=== PATIENT | female | born 1955 | race Asian ===

== ENCOUNTER 2018-04-05 21:55 | Emergency (ER) | payer MEDICARE, MEDICAID ==
--- NOTE | 2018-04-06 00:54 | ED Physician Documentation ---
History of Present Illness - Stated complaint Stated Complaint: R FOOT PX/RED O.S. - Chief complaint Chief Complaint: Trauma Ext - History obtained from History obtained from: Patient - History of Present Illness Timing: Enter time (20:00), Today Pain level now: 3 Worsened by: palpation, movement - Additonal information Additional information: c/o right foot and right ankle pain since 8 PM when she accidentally struck doorframe. she also wants me to evaluate her left eye, as it has been red since earlier today without injury or discomfort. Review of Systems Eyes: reports: Reviewed and negative, Other (left eye redness) PD PAST MEDICAL HISTORY - Past Medical History Past Medical History: Yes Neuro: Parkinson's Other Past Medical History: Dystonia - Present Medications Home Medications: Ambulatory Orders Medication Instructions Recorded Confirmed Gabapentin 1 cap PO DAILY 04/05/18 04/05/18 Acetaminophen [Tylenol] 650 mg PO Q4HR PRN 04/06/18 04/06/18 - Allergies Allergies/Adverse Reactions: Allergies Allergy/AdvReac Type Severity Reaction Status Date / Time erythromycin base Allergy Unknown Verified 04/05/18 23:51 fluticasone [From Flonase] Allergy Unknown Verified 04/05/18 23:52 morphine Allergy Unknown Verified 04/05/18 23:52 Penicillins Allergy Unknown Verified 04/05/18 23:51 Sulfa (Sulfonamide Allergy Unknown Verified 04/05/18 23:51 Antibiotics) - Social History Does the pt smoke?: No Smoking Status: Never smoker Does the pt drink ETOH?: No Does the pt have substance abuse?: No - Immunizations Immunizations are current?: Yes - POLST Patient has POLST: No PD ED PE NORMAL - Vitals Vital signs reviewed: Yes - General General: Alert and oriented X 3, No acute distress, Well developed/nourished, Other (sitting in electric wheelchair with chihuahua in her lap. ) PD ED PE EXPANDED - Eyes Eyes: Right eye, Subconj hemorrhage (mild, ledt eye, medial aspect) - Extremities Extremities: Tenderness, Limited ROM, Swelling, Right ankle, Right foot Results - Vitals Vitals: Vital Signs - 24 hr 04/06/18 03:36 Heart Rate 90 Respiratory 16 Rate Blood Pressure 155/72 H O2 Saturation 100 Oxygen O2 Source Room air - Rads (name of study) right foot xrays Radiology: Prelim report reviewed, See rad report right ankle xrays Radiology: Prelim report reviewed, See rad report PD MEDICAL DECISION MAKING - ED course Complexity details: reviewed results, re-evaluated patient, considered differential, d/w patient - Sepsis Event Vital Signs: Vital Signs - 24 hr 04/06/18 03:36 Heart Rate 90 Respiratory 16 Rate Blood Pressure 155/72 H O2 Saturation 100 Oxygen O2 Source Room air Departure - Departure Disposition: 01 Home, Self Care Clinical Impression: Contusion of right ankle, Right foot sprain Condition: Good Instructions: ED Contusion Foot Follow-Up: ROBIN SEGOVIA PA-C [Primary Care Provider] - Discharge Date/Time: 04/06/18 04:09
--- NOTE | 2018-04-06 03:02 | XRAY Report ---
Procedure Date: 04/06/2018 Accession Number: [id number] / [id number] Procedure: XR - Foot 3 View RT CPT Code: FULL RESULT: EXAM: RIGHT FOOT RADIOGRAPHY EXAM DATE: 04/06/2018 02:28 AM. CLINICAL HISTORY: Injury, pain, tenderness. COMPARISON: None. TECHNIQUE: 3 views. FINDINGS: Reduced sensitivity and specificity due to difficulty with patient positioning. Furthermore, osteopenia compromises exam sensitivity and specificity. Bones: No definite acute displaced fracture. No definite suspicious bony lesion. Joints: No dislocation is demonstrated. Soft Tissues: No significant soft tissue swelling. IMPRESSION: 1. No definite acute bony abnormality. Please see discussion above. RADIA
--- NOTE | 2018-04-06 03:03 | XRAY Report ---
Procedure Date: 04/06/2018 Accession Number: [id number] / [id number] Procedure: XR - Ankle 3 View RT CPT Code: FULL RESULT: EXAM: RIGHT ANKLE RADIOGRAPHY EXAM DATE: 04/06/2018 02:24 AM. CLINICAL HISTORY: Injury, pain, tenderness. COMPARISON: None. TECHNIQUE: 3 views. FINDINGS: Bones: No definite acute displaced fracture or suspicious lesion evident at this time. However, bones are at least moderately osteopenic. This reduces exam sensitivity and specificity for detection of subtle bony lesions and/or fractures. Joints: As visualized, ankle mortise appears intact on these nonstressed images. Soft Tissues: Mild to moderate lateral soft tissue swelling. IMPRESSION: There is lateral soft tissue swelling. However, no definite acute displaced fracture demonstrated at this time. Osteopenia reduces sensitivity and specificity. RADIA
[2018-04-06 03:37] VITALS: BP 155/72
== END 2018-04-06 04:09 | disposition home or self-care (01) ==
LOC: ED 21:55
DX: S90.01XA Contusion of right ankle, initial encounter (principal); S90.31XA Contusion of right foot, initial encounter; W22.09XA Striking against other stationary object, initial encounter; G20 Parkinson's disease
CPT/HCPCS: 99282; 99284

== ENCOUNTER 2018-08-27 20:22 | Outpatient (CLI) | payer MEDICARE, MEDICAID | END 2018-08-27 20:23 | disposition critical access hospital (66) | LOC: EMS 20:22 | PROVIDERS: ATTEND Surgery | DX: R11.2 Nausea with vomiting, unspecified (principal); R19.7 Diarrhea, unspecified; G20 Parkinson's disease; G24.9 Dystonia, unspecified | CPT/HCPCS: A0425; A0429 ==

== ENCOUNTER 2018-08-27 20:26 | Emergency (ER) | payer MEDICARE, MEDICAID ==
[2018-08-27] MEDS ORDERED: LOPERAMIDE 2 MG CAPSULE PO STA (20:32)
[2018-08-27] MEDS ORDERED: ONDANSETRON 4 MG/2 ML VIAL IVP STA (20:32)
[2018-08-27] MEDS ORDERED: SODIUM CHLORIDE 0.9% 1,000 ML IV ONE (20:32)
--- NOTE | 2018-08-27 20:39 | ED Physician Documentation ---
PD HPI NVD - Stated complaint Stated Complaint: DIARRHEA - History obtained from History obtained from: Patient - History of Present Illness Timing - onset: Today (She felt fine earlier in the day but abruptly developed vomiting and diarrhea just a few hours ago without blood from either end. Both of been profuse. She lives in a snf but there is been no illness there that she knows of. She has chronic muscle spasms from dystonia and parkinsonism that are much worse with this. No other pain, specifically no abdominal pain.) Review of Systems Constitutional: reports: Myalgias. denies: Fever, Chills Nose: denies: Rhinorrhea / runny nose, Congestion Cardiac: denies: Chest pain / pressure, Palpitations Respiratory: denies: Dyspnea, Cough GI: reports: Nausea, Vomiting, Diarrhea. denies: Abdominal Pain, Abdominal Swelling, Constipation, Hematemesis, Bloody / black stool PD PAST MEDICAL HISTORY - Past Medical History Neuro: Parkinson's - Present Medications Home Medications: Ambulatory Orders Medication Instructions Recorded Confirmed RX: Gabapentin 1 cap PO DAILY 04/05/18 04/05/18 Acetaminophen [Tylenol] 650 mg PO Q4HR PRN 04/06/18 04/06/18 Loperamide [Imodium] 2 mg PO QID PRN #10 capsule 08/27/18 Ondansetron Odt [Zofran] 4 mg TL Q6H PRN #10 tablet 08/27/18 - Allergies Allergies/Adverse Reactions: Allergies Allergy/AdvReac Type Severity Reaction Status Date / Time erythromycin base Allergy Unknown Verified 04/05/18 23:51 fluticasone [From Flonase] Allergy Unknown Verified 04/05/18 23:52 morphine Allergy Unknown Verified 04/05/18 23:52 Penicillins Allergy Unknown Verified 04/05/18 23:51 Sulfa (Sulfonamide Allergy Unknown Verified 04/05/18 23:51 Antibiotics) - Social History Does the pt smoke?: No Smoking Status: Never smoker Does the pt drink ETOH?: No Does the pt have substance abuse?: No - Immunizations Immunizations are current?: Yes - POLST Patient has POLST: No PD ED PE NORMAL - Vitals Vital signs reviewed: Yes - General General: Alert and oriented X 3, No acute distress - Cardiac Cardiac: RRR, No murmur - Respiratory Respiratory: No respiratory distress, Clear bilaterally - Abdomen Abdomen: Normal bowel sounds, Soft, Non tender - Derm Derm: Normal color, Warm and dry - Extremities Extremities: Other (Most of her muscles are held extended.) - Neuro Neuro: Alert and oriented X 3, Normal speech Results - Vitals Vitals: Vital Signs - 24 hr 08/27/18 08/27/18 20:29 23:13 Temperature 36.5 C Heart Rate 108 H 89 Respiratory 18 Rate Blood Pressure 135/79 H 119/64 O2 Saturation 98 91 L Oxygen O2 Source Room air - Labs Labs: Laboratory Tests 08/27/18 08/27/18 20:14 20:14 WBC 20.0 H RBC 5.14 Hgb 16.2 H Hct 48.3 H MCV 94.0 MCH 31.4 H MCHC 33.4 RDW 13.2 Plt Count 194 MPV 10.2 Neut # (Auto) 17.9 H Lymph # (Auto) 0.6 L [place] # (Auto) 1.2 H Eos # (Auto) 0.2 Baso # (Auto) 0.1 Absolute Nucleated RBC 0.01 Nucleated RBC % 0.0 Sodium 137 Potassium 3.9 Chloride 104 Carbon Dioxide 23 Anion Gap 10.0 BUN 20 Creatinine 0.8 Estimated GFR (MDRD) 73 L Glucose 154 H Calcium 9.3 Magnesium 1.8 Total Bilirubin 0.7 AST 28 ALT 18 Alkaline Phosphatase 62 Total Protein 7.2 Albumin 4.3 Globulin 2.9 Albumin/Globulin Ratio 1.5 Lipase 27 PD MEDICAL DECISION MAKING - ED course ED course: She has sx of viral gastroenteritis,. Benign abd exam. CT done d/t leukocytosis but NAD. Feeling much better after IVF, zofran and imodium anmd passed PO challenge. Given close return precaustions, i.e should be better in 12 hours. Departure - Departure Disposition: 01 Home, Self Care Clinical Impression: Gastroenteritis and colitis, viral, Leukocytosis Condition: Good Record reviewed to determine appropriate education?: Yes Instructions: ED Gastroenteritis Viral Prescriptions: Loperamide [Imodium] 2 mg PO QID PRN #10 capsule PRN Reason: Diarrhea Ondansetron Odt [Zofran] 4 mg TL Q6H PRN #10 tablet PRN Reason: Nausea / Vomiting Comments: Return in 12-18 hours if not better, anytime if worsening or if new symptoms develop. Recheck with your doctor in 1 week. Your blood pressure was elevated today on check into the emergency department. This does not mean that you have hypertension, it is a common phenomenon to come to the emergency department and have elevated blood pressure. I recommend that you see your primary care physician within the week to have it rechecked when you are feeling better. Discharge Date/Time: 08/27/18 23:14
[2018-08-27 20:57] LABS: BASOPHILS # (AUTO) 0.1 10^3/uL (0.0-0.1); BASOPHILS % (AUTO) 0.3 %; EOSINOPHILS # (AUTO) 0.2 10^3/uL (0.0-0.7); EOSINOPHILS % (AUTO) 1.2 %; HGB - HEMOGLOBIN 16.2 g/dL (12.0-16.0); LYMPHOCYTES # (AUTO) 0.6 10^3/uL (1.5-3.5); LYMPHOCYTES % (AUTO) 3.2 %; MEAN CORPUSCULAR HEMOGLOBIN 31.4 pg (27.0-31.0); MEAN CORPUSCULAR HGB CONC 33.4 g/dL (32.0-36.0); MEAN PLATELET VOLUME 10.2 fL (7.9-10.8); MONOCYTES # (AUTO) 1.2 10^3/uL (0.0-1.0); MONOCYTES % (AUTO) 6.1 %; NEUTROPHILS # (AUTO) 17.9 10^3/uL (1.5-6.6); NEUTROPHILS % (AUTO) 89.2 %; PLT - PLATELET COUNT 194 10^3/uL (130-450); RED BLOOD COUNT 5.14 10^6/uL (4.20-5.40); RED CELL DISTRIBUTION WIDTH 13.2 % (12.0-15.0)
[2018-08-27] MEDS ORDERED: CARBIDOPA/LEVODOPA 10 MG/100 MG TABLET PO STA (21:16)
[2018-08-27] MEDS ORDERED: GABAPENTIN 100 MG CAPSULE PO STA (21:16)
[2018-08-27] MEDS ORDERED: ACETAMINOPHEN/CODEINE 300 MG/30 MG TABLET PO STA (21:16)
[2018-08-27] MEDS ORDERED: IOVERSOL 320 100 ML VIAL IVP ONE ×2 (21:19→22:00)
[2018-08-27] MEDS ORDERED: GABAPENTIN 400 MG CAPSULE ONE (21:27)
[2018-08-27 21:30] LABS: ALBUMIN 4.3 g/dL (3.2-5.5); ALBUMIN/GLOBULIN RATIO 1.5 (1.0-2.2); BILIRUBIN,TOTAL 0.7 mg/dL (0.2-1.0); CALCIUM 9.3 mg/dL (8.5-10.3); CREATININE 0.8 mg/dL (0.4-1.0); MAGNESIUM 1.8 mg/dL (1.7-2.8); TOTAL PROTEIN 7.2 g/dL (6.7-8.2)
--- NOTE | 2018-08-27 22:34 | CT Report ---
Reason: IV only, N/V/D, 20K WBC Procedure Date: 08/27/2018 Accession Number: [id number] / [id number] Procedure: CT - Abdomen/Pelvis W/ CPT Code: FULL RESULT: EXAM: CT ABDOMEN AND PELVIS EXAM DATE: 08/27/2018 09:38 PM. CLINICAL HISTORY: IV only, N/V/D, 20K WBC. COMPARISONS: None. TECHNIQUE: Routine helical CT imaging was performed through the abdomen and pelvis. IV contrast: 90 ML OPTIRAY 320. Enteric contrast: No. Reconstructions: Coronal and sagittal. In accordance with CT protocol optimization, one or more of the following dose reduction techniques were utilized for this exam: automated exposure control, adjustment of mA and/or KV based on patient size, or use of iterative reconstructive technique. FINDINGS: Lung Bases: Lung bases are clear. No pleural or pericardial effusions. No cardiac enlargement. Small hiatal hernia noted. Liver: Normal. No masses. Gallbladder/Bile Ducts: Gallbladder is absent. No common bile duct dilation noted. Spleen: Normal. Pancreas: Normal. Adrenal Glands: Normal. Kidneys: Incidental peripelvic cyst. No mass. Small left-sided renal cyst. Coarse small inferior left renal stone. Peritoneal Cavity/Bowel: Normal. No free fluid, free air or adenopathy. No masses or acute inflammatory process. There are multiple diverticula seen which most severely affect the sigmoid colon. No wall thickening or adjacent inflammation seen. No obstruction noted. The appendix is well visualized and normal. Pelvic Organs: Uterus is absent. Normal bladder. No ascites. No collection, pelvic mass or adenopathy. Vasculature: No aneurysms or other significant abnormality. Bones: No osteoblastic or osteolytic lesions are noted. Multilevel degenerative disk disease and facet arthropathy is noted. Status post L4-S1 posterior fusion and laminectomy. Other: None. IMPRESSION: 1. Diverticulosis. No inflammation or obstruction. 2. No acute abnormality in abdomen or pelvis. 3. Status post hysterectomy. RADIA
[2018-08-27] MEDS ORDERED: ONDANSETRON ODT 4 MG Prepack 2 TL STA (22:38)
[2018-08-27 23:14] VITALS: BP 119/64
== END 2018-08-27 23:14 | disposition home or self-care (01) ==
LOC: EDUNIT# → ED 20:26
DX: A08.4 Viral intestinal infection, unspecified (principal); D72.829 Elevated white blood cell count, unspecified; G20 Parkinson's disease; R03.0 Elevated blood-pressure reading, without diagnosis of hypertension
CPT/HCPCS: 36415; 74177; 80053; 83690; 83735; 85025; 96361; 96374; 99283; A9270; Q9967

== ENCOUNTER 2018-08-27 23:14 | Outpatient (CLI) | payer MEDICARE, MEDICAID | END 2018-08-27 23:15 | disposition short-term general hospital (02) | LOC: EMS 23:14 | PROVIDERS: ATTEND Surgery | DX: G20 Parkinson's disease (principal); G24.9 Dystonia, unspecified ==

== ENCOUNTER 2018-12-12 13:01 | Emergency (ER) | payer MEDICARE, MEDICAID ==
--- NOTE | 2018-12-12 14:26 | ED Physician Documentation ---
History of Present Illness - Stated complaint Stated Complaint: LT SIDE PX - Chief complaint Chief Complaint: General - History obtained from History obtained from: Patient - History of Present Illness Timing: Other (2 days of left flank pain. Better with laying still. Fell two weeks ago, but pain not bad until 2 days ago. No acute bowel or bladder complaints, but always with urgency d/t dystonia.) PD PAST MEDICAL HISTORY - Past Medical History Past Medical History: Yes Neuro: Parkinson's - Past Surgical History Past Surgical History: No - Present Medications Home Medications: Ambulatory Orders Medication Instructions Recorded Confirmed Gabapentin 2 cap PO BID 04/05/18 12/12/18 Acetaminophen [Tylenol] 650 mg PO BID 04/06/18 12/12/18 Ondansetron Odt [Zofran] 4 mg TL Q6H PRN #10 tablet 08/27/18 Albuterol Sulfate [Proair 2 puffs INH Q6HR PRN 12/12/18 12/12/18 Respiclick] Carbidopa/Levodopa [Carbidopa-Levo 1 tab ORAL BID 12/12/18 12/12/18 ER 50-200 Tab] Carbidopa/Levodopa 3 tab ORAL QID 12/12/18 12/12/18 [Carbidopa-Levodopa 10-100 Tab] Ciprofloxacin HCl [Cipro] 500 mg PO BID #14 tablet 12/12/18 Docusate Sodium 1 cap ORAL BID 12/12/18 12/12/18 Ketorolac [Toradol] 10 mg PO Q6H PRN #10 tablet 12/12/18 Levocetirizine Dihydrochloride 1 tab ORAL QPM 12/12/18 12/12/18 Montelukast Sodium 1 tab ORAL QPM 12/12/18 12/12/18 Venlafaxine ER [Effexor ER] 225 mg ORAL DAILY 12/12/18 12/12/18 - Allergies Allergies/Adverse Reactions: Allergies Allergy/AdvReac Type Severity Reaction Status Date / Time erythromycin base Allergy Unknown Verified 12/12/18 13:09 fluticasone [From Flonase] Allergy Unknown Verified 12/12/18 13:09 morphine Allergy Unknown Verified 12/12/18 13:09 Penicillins Allergy Unknown Verified 12/12/18 13:09 Sulfa (Sulfonamide Allergy Unknown Verified 12/12/18 13:09 Antibiotics) - Social History Does the pt smoke?: No Smoking Status: Never smoker Does the pt drink ETOH?: No Does the pt have substance abuse?: No - Immunizations Immunizations are current?: Yes - POLST Patient has POLST: No PD ED PE NORMAL - Vitals Vital signs reviewed: Yes - General General: Alert and oriented X 3, No acute distress - Cardiac Cardiac: RRR, No murmur - Respiratory Respiratory: No respiratory distress, Clear bilaterally - Abdomen Abdomen: Non tender - Back Back: No spinal TTP, Other (TTP Left flank and winces with motion/twisting, also TTP L low ribs posterior) - Neuro Neuro: Alert and oriented X 3, Normal speech Results - Vitals Vitals: Vital Signs - 24 hr 12/12/18 13:04 Temperature 36.7 C Heart Rate 96 Respiratory 16 Rate Blood Pressure 132/78 H O2 Saturation 96 Oxygen O2 Source Room air - Labs Labs: Laboratory Tests 12/12/18 15:07 Urine Color YELLOW Urine Clarity HAZY Urine pH 6.0 Ur Specific [place] 1.015 Urine Protein NEGATIVE Urine Glucose (UA) NEGATIVE Urine Ketones TRACE Urine Occult Blood LARGE H Urine Nitrite POSITIVE H Urine Bilirubin NEGATIVE Urine Urobilinogen 0.2 (NORMAL) Ur Leukocyte Esterase SMALL H Urine RBC 11-25 H Urine WBC >25 H Urine WBC Clumps PRESENT Ur Squamous Epith Cells NONE SEEN Urine Bacteria Many H Ur Microscopic Review INDICATED Urine Culture Comments INDICATED - Rads (name of study) L ribs and chest Radiology: EMP read contemporaneously (neg, no frx seen) PD MEDICAL DECISION MAKING - ED course ED course: 63-year-old woman with pyelonephritis, complained of left flank pain after a fall but the pain was significantly delayed after the injury so may or may not have been related. X-rays of the ribs are negative. Prescribe Cipro for the pyelonephritis. She does not appear ill and her vital signs are normal. Departure - Departure Disposition: 01 Home, Self Care Clinical Impression: Pyelonephritis Contusion of rib on left side Qualifiers: Encounter type: initial encounter Qualified Code(s): S20.212A - Contusion of left front wall of thorax, initial encounter Condition: Good Record reviewed to determine appropriate education?: Yes Instructions: Pyelonephritis Dc Prescriptions: Ciprofloxacin HCl [Cipro] 500 mg PO BID #14 tablet Ketorolac [Toradol] 10 mg PO Q6H PRN #10 tablet PRN Reason: Pain Comments: We will culture your urine, the results should be done in 48-72 hours. If an antibiotic change is necessary we will call you. Return if worse in the meantime, especially if you develop increasing flank pain, fevers, or cannot k eep down the medication. Recheck with your doctor within the week.
[2018-12-12] MEDS ORDERED: KETOROLAC 60 MG/2 ML VIAL IM STA (14:39)
--- NOTE | 2018-12-12 15:22 | XRAY Report ---
Reason: post L rib inj, low Procedure Date: 12/12/2018 Accession Number: [id number] / [id number] Procedure: XR - Ribs w/PA Chest LT CPT Code: FULL RESULT: EXAM: LEFT RIB RADIOGRAPHY EXAM DATE: 12/12/2018 03:09 PM. CLINICAL HISTORY: Posterior lower left rib injury 1 week ago in a fall. Pain. COMPARISON: None. TECHNIQUE: 1 view of the chest and 3 views of the ribs. FINDINGS: Bones: Detail limited by soft tissue attenuation. No fracture or bone lesion identified. Lungs: No focal opacities. No pneumothorax. No pleural effusions. Mediastinum: Heart and mediastinal contours are unremarkable. Other: None. IMPRESSION: No rib fracture identified. RADIA
[2018-12-12 15:24] LABS: BILIRUBIN,URINE NEGATIVE (NEGATIVE); GLUCOSE, URINE (UA) NEGATIVE (NEGATIVE); KETONES,URINE (UA) TRACE mg/dL (NEGATIVE); LEUKOCYTE ESTERASE, URINE SMALL (NEGATIVE); NITRITE,URINE POSITIVE (NEGATIVE); OCCULT BLOOD,URINE LARGE (NEGATIVE); PROTEIN,URINE NEGATIVE (NEGATIVE); UROBILINOGEN,URINE 0.2 (NORMAL) E.U./dL (NORMAL)
[2018-12-12 15:54] LABS: CLARITY,URINE HAZY (CLEAR)
[2018-12-12 15:55] LABS: BACTERIA,URINE Many /HPF (None Seen); SQUAMOUS EPITHELIAL CELL,UR NONE SEEN (<= Few); WBC CLUMPS,URINE PRESENT
[2018-12-12] MEDS ORDERED: CIPROFLOXACIN 250 MG TABLET PO STA (16:03)
[2018-12-12 16:34] VITALS: BP 128/72
== END 2018-12-12 16:34 | disposition home or self-care (01) ==
LOC: ED 13:01
DX: G20 Parkinson's disease (principal); N12 Tubulo-interstitial nephritis, not specified as acute or chronic; S20.212A Contusion of left front wall of thorax, initial encounter
CPT/HCPCS: 71101; 81001; 87086; 87181; 96372; 99283; A9270; 81003

== ENCOUNTER 2019-01-07 10:15 | Emergency (ER) | payer MEDICARE, MEDICAID ==
[2019-01-07 10:21] VITALS: BP 114/94
[2019-01-07] MEDS ORDERED: MAG HYDROX/AL HYDROX/SIMETH 30 ML UDC PO STA (12:10)
[2019-01-07] MEDS ORDERED: LIDOCAINE VISCOUS 2% 15 ML UDC MM STA (12:10)
--- NOTE | 2019-01-07 12:12 | ED Physician Documentation ---
PD HPI HEENT - Stated complaint Stated Complaint: DIFF SWALLOWING - Chief complaint Chief Complaint: Heent - History obtained from History obtained from: Patient - History of Present Illness Timing - onset: Other (63-year-old woman with history of dystonia presents with difficulty swallowing. She has chronic Issues with swallowing. She has had Botox injections in her vocal cords a couple of times for this. She always has difficulty with bread and pills but over the last few days has had difficulty swallowing liquids. She feels like things get stuck about the level of the thyroid or hyoid. She does not feel like she is aspirating. This is never happened with liquids before. The last time she had Botox was about 6 months ago so she is due. She sees an ENT for that.) Review of Systems Constitutional: reports: Reviewed and negative Nose: reports: Reviewed and negative Cardiac: reports: Reviewed and negative PD PAST MEDICAL HISTORY - Past Medical History Past Medical History: Yes Neuro: Parkinson's - Past Surgical History Past Surgical History: No - Present Medications Home Medications: Ambulatory Orders Medication Instructions Recorded Confirmed Gabapentin 2 cap PO BID 04/05/18 12/12/18 Acetaminophen [Tylenol] 650 mg PO BID 04/06/18 12/12/18 Ondansetron Odt [Zofran] 4 mg TL Q6H PRN #10 tablet 08/27/18 Albuterol Sulfate [Proair 2 puffs INH Q6HR PRN 12/12/18 12/12/18 Respiclick] Carbidopa/Levodopa [Carbidopa-Levo 1 tab ORAL BID 12/12/18 12/12/18 ER 50-200 Tab] Carbidopa/Levodopa 3 tab ORAL QID 12/12/18 12/12/18 [Carbidopa-Levodopa 10-100 Tab] Ciprofloxacin HCl [Cipro] 500 mg PO BID #14 tablet 12/12/18 Docusate Sodium 1 cap ORAL BID 12/12/18 12/12/18 Ketorolac [Toradol] 10 mg PO Q6H PRN #10 tablet 12/12/18 Levocetirizine Dihydrochloride 1 tab ORAL QPM 12/12/18 12/12/18 Montelukast Sodium 1 tab ORAL QPM 12/12/18 12/12/18 Venlafaxine ER [Effexor ER] 225 mg ORAL DAILY 12/12/18 12/12/18 Maalox/Lidocaine 5 ml PO Q4H PRN #120 ml 01/07/19 - Allergies Allergies/Adverse Reactions: Allergies Allergy/AdvReac Type Severity Reaction Status Date / Time erythromycin base Allergy Unknown Verified 01/07/19 10:21 fluticasone [From Flonase] Allergy Unknown Verified 01/07/19 10:21 morphine Allergy Unknown Verified 01/07/19 10:21 Penicillins Allergy Unknown Verified 01/07/19 10:21 Sulfa (Sulfonamide Allergy Unknown Verified 01/07/19 10:21 Antibiotics) - Social History Does the pt smoke?: No Smoking Status: Never smoker Does the pt drink ETOH?: No Does the pt have substance abuse?: No - Immunizations Immunizations are current?: Yes - POLST Patient has POLST: No PD ED PE NORMAL - Vitals Vital signs reviewed: Yes - General General: Alert and oriented X 3, No acute distress - HEENT HEENT: Other (Phonation and Visualized portions of the oropharynx are normal.) - Neck Neck: Supple, no meningeal sign, No bony TTP - Neuro Neuro: Alert and oriented X 3, Normal speech Results - Vitals Vitals: Vital Signs - 24 hr 01/07/19 10:20 Heart Rate 65 Respiratory 18 Rate Blood Pressure 114/94 H O2 Saturation 98 Oxygen O2 Source Room air PD MEDICAL DECISION MAKING - ED course ED course: She is much less symptomatic after a GI cocktail. I discussed that I would be happy to give her a prescription for this pending ENT follow-up but she needs to be careful about aspiration and sit bolt upright when she is eating. She voices understanding. Departure - Departure Disposition: 01 Home, Self Care Clinical Impression: Dysphagia Qualifiers: Dysphagia type: oropharyngeal phase Qualified Code(s): R13.12 - Dysphagia, oropharyngeal phase Condition: Good Record reviewed to determine appropriate education?: Yes Instructions: Dysphagia Tx Prescriptions: Maalox/Lidocaine 5 ml PO Q4H PRN #120 ml PRN Reason: swallowing Comments: As discussed it is important to sit upright when eating to prevent aspiration. Return for new or worsening symptoms. Follow-up with your ENT on Wednesday.
== END 2019-01-07 12:44 | disposition home or self-care (01) ==
LOC: ED 10:15
DX: R13.12 Dysphagia, oropharyngeal phase (principal); G24.9 Dystonia, unspecified; G20 Parkinson's disease; Z79.51 Long term (current) use of inhaled steroids; Z79.899 Other long term (current) drug therapy
CPT/HCPCS: 99283; A9270

== ENCOUNTER 2019-01-14 06:47 | Outpatient (CLI) | payer MEDICARE, MEDICAID | END 2019-01-14 06:48 | disposition critical access hospital (66) | LOC: EMS 06:47 | PROVIDERS: ATTEND Surgery | DX: R19.7 Diarrhea, unspecified (principal); R11.10 Vomiting, unspecified; R07.81 Pleurodynia ==

== ENCOUNTER 2019-01-14 06:53 | Emergency (ER) | payer MEDICARE, MEDICAID ==
[2019-01-14] MEDS ORDERED: SODIUM CHLORIDE 0.9% 1,000 ML IV ONE ×2 (07:40→12:46)
[2019-01-14] MEDS ORDERED: ONDANSETRON 4 MG/2 ML VIAL IVP STA (07:40)
--- NOTE | 2019-01-14 07:41 | ED Physician Documentation ---
PD HPI NVD - Stated complaint Stated Complaint: DIARRHEA - Chief complaint Chief Complaint: Abd Pain - History obtained from History obtained from: Patient - History of Present Illness Timing - onset: Enter time (0300), Last night Timing - duration: Hours Timing - details: Abrupt onset, Still present Associated symptoms: Abdominal pain Contributing factors: Recent antibiotics (cipro last month) Improved by: Laying still Similar symptoms before: Diagnosis (gastroenteritis) Recently seen: Emergency Dept - Additonal information Additional information: 63-year-old female history of dystonia and Parkinson's has developed acute diarrhea at about 3 AM this morning. She does not have any specific reason that she should have diarrhea she developed vomiting associated with this and she is come to the emergency department. She has had a similar episode to this about 5 months ago at which time she was diagnosed with viral gastroenteritis and improved with some Imodium and fluids.Since that time she has had an episode of pyelonephritis and has been on a course of Cipro. Review of Systems Constitutional: reports: Myalgias, Fatigue. denies: Fever, Chills Eyes: denies: Decreased vision Ears: denies: Ear pain Nose: denies: Rhinorrhea / runny nose, Congestion Throat: denies: Sore throat Cardiac: denies: Chest pain / pressure, Palpitations Respiratory: denies: Dyspnea, Cough GI: reports: Abdominal Pain, Nausea, Vomiting, Diarrhea : denies: Dysuria, Frequency Skin: denies: Rash Musculoskeletal: reports: Extremity pain. denies: Neck pain, Back pain Neurologic: reports: Generalized weakness. denies: Focal weakness, Numbness PD PAST MEDICAL HISTORY - Past Medical History Neuro: Parkinson's - Past Surgical History Past Surgical History: No - Present Medications Home Medications: Ambulatory Orders Medication Instructions Recorded Confirmed Gabapentin 2 cap PO BID 04/05/18 12/12/18 Carbidopa/Levodopa [Carbidopa-Levo 2 tab ORAL DAILY 12/12/18 12/12/18 ER 50-200 Tab] Carbidopa/Levodopa 3 tab ORAL QID 12/12/18 12/12/18 [Carbidopa-Levodopa 10-100 Tab] Levocetirizine Dihydrochloride 1 tab ORAL QPM 12/12/18 12/12/18 Montelukast Sodium 1 tab ORAL QPM 12/12/18 12/12/18 Venlafaxine ER [Effexor ER] 225 mg ORAL DAILY 12/12/18 12/12/18 Acetaminophen/Cod 300/30 [Tylenol 1 each PO BID 01/14/19 01/14/19 #3] Diphenoxylate/Atropine [Lomotil] 1 each PO QID PRN #20 tablet 01/14/19 Ondansetron Odt [Zofran] 4 mg TL Q6H PRN #10 tablet 01/14/19 Oxybutynin [Ditropan] 5 mg PO 01/14/19 - Allergies Allergies/Adverse Reactions: Allergies Allergy/AdvReac Type Severity Reaction Status Date / Time erythromycin base Allergy Unknown Verified 01/14/19 08:07 fluticasone [From Flonase] Allergy Unknown Verified 01/14/19 08:07 morphine Allergy Unknown Verified 01/14/19 08:07 Penicillins Allergy Unknown Verified 01/14/19 08:07 Sulfa (Sulfonamide Allergy Unknown Verified 01/14/19 08:07 Antibiotics) - Social History Does the pt smoke?: No Smoking Status: Never smoker Does the pt drink ETOH?: No Does the pt have substance abuse?: No - Immunizations Immunizations are current?: Yes - POLST Patient has POLST: No PD ED PE NORMAL - Vitals Vital signs reviewed: Yes (tachy and hypertensive ) - General General: No acute distress, Well developed/nourished - HEENT HEENT: Atraumatic, PERRL, EOMI - Neck Neck: Supple, no meningeal sign, No bony TTP - Cardiac Cardiac: No murmur, Other (tachy to 100) - Respiratory Respiratory: No respiratory distress - Abdomen Abdomen: Soft, Other (There is RUQ pain to palpation that resolves with continued pressure. ) - Back Back: No CVA TTP, No spinal TTP - Derm Derm: Normal color, Warm and dry, No rash - Extremities Extremities: No edema, Other (The patient's hands are held in extention. ) - Neuro Neuro: Alert and oriented X 3, manager of broadcast content 2-12 intact, No motor deficit, No sensory deficit, Normal speech Eye Opening: Spontaneous Motor: Obeys Commands Verbal: Oriented GCS Score: 15 - Psych Psych: Normal mood, Normal affect Results - Vitals Vitals: Vital Signs - 24 hr 01/14/19 01/14/19 01/14/19 06:57 08:30 09:11 Temperature 36.8 C Heart Rate 107 H 102 H 88 Respiratory 17 15 Rate Blood Pressure 145/87 H 141/86 H O2 Saturation 96 97 94 01/14/19 01/14/19 01/14/19 09:42 11:31 12:45 Temperature Heart Rate 91 111 H 94 Respiratory 18 18 13 Rate Blood Pressure 122/75 140/87 H 104/71 O2 Saturation 97 94 94 01/14/19 01/14/19 14:06 16:00 Temperature Heart Rate 87 103 H Respiratory 15 17 Rate Blood Pressure 97/62 146/91 H O2 Saturation 97 95 Oxygen O2 Source Room air - Labs Labs: Microbiology 01/14/19 07:35 Campylobacter Antigen Assay - Final Stool Laboratory Tests 01/14/19 01/14/19 01/14/19 07:35 08:50 08:50 WBC 18.0 H RBC 4.98 Hgb 15.1 Hct 46.0 MCV 92.5 MCH 30.4 MCHC 32.9 RDW 13.6 Plt Count 138 MPV 11.1 H Neut # (Auto) 16.3 H Lymph # (Auto) 0.4 L Mcmullen # (Auto) 1.1 H Eos # (Auto) 0.1 Baso # (Auto) 0.1 Absolute Nucleated RBC 0.00 Nucleated RBC % 0.0 Sodium 141 Potassium 3.8 Chloride 103 Carbon Dioxide 26 Anion Gap 12.0 BUN 29 H Creatinine 0.8 Estimated GFR (MDRD) 73 L Glucose 140 H Lactic Acid Calcium 8.8 Total Bilirubin 0.8 AST 34 ALT 20 Alkaline Phosphatase 52 Troponin I Total Protein 6.3 L Albumin 3.8 Globulin 2.5 Albumin/Globulin Ratio 1.5 Lipase 21 L C. difficile Tox B Gene NEGATIVE 01/14/19 01/14/19 08:50 08:50 WBC RBC Hgb Hct MCV MCH MCHC RDW Plt Count MPV Neut # (Auto) Lymph # (Auto) Mcmullen # (Auto) Eos # (Auto) Baso # (Auto) Absolute Nucleated RBC Nucleated RBC % Sodium Potassium Chloride Carbon Dioxide Anion Gap BUN Creatinine Estimated GFR (MDRD) Glucose Lactic Acid 3.1 H* Calcium Total Bilirubin AST ALT Alkaline Phosphatase Troponin I < 0.04 Total Protein Albumin Globulin Albumin/Globulin Ratio Lipase C. difficile Tox B Gene PD MEDICAL DECISION MAKING - ED course Complexity details: reviewed old records, reviewed results, re-evaluated patient, considered differential, d/w patient ED course: 63 y/o female with parkinsons has developed acute diarrheal illness with vomiting and is dehydrated this morning on arrival to the ED. She is administered IV saline 2 liters, lomotil PO and zofran TL as well as dilaudid for pain. She has improvement and arrangements are made for her to go home but she will not be able to leave until 6PM. Departure - Departure Disposition: 01 Home, Self Care Clinical Impression: Gastroenteritis Condition: Stable Instructions: ED Gastroenteritis Viral Follow-Up: ROBIN SEGOVIA PA-C [Primary Care Provider] - Prescriptions: Diphenoxylate/Atropine [Lomotil] 1 each PO QID PRN #20 tablet PRN Reason: Diarrhea Ondansetron Odt [Zofran] 4 mg TL Q6H PRN #10 tablet PRN Reason: Nausea / Vomiting
[2019-01-14] MEDS ORDERED: DIPHENOX/ATROPINE 2.5/0.025 MG TABLET PO STA (07:48)
[2019-01-14 09:06] LABS: BASOPHILS # (AUTO) 0.1 10^3/uL (0.0-0.1); BASOPHILS % (AUTO) 0.7 %; EOSINOPHILS # (AUTO) 0.1 10^3/uL (0.0-0.7); EOSINOPHILS % (AUTO) 0.5 %; HGB - HEMOGLOBIN 15.1 g/dL (12.0-16.0); LYMPHOCYTES # (AUTO) 0.4 10^3/uL (1.5-3.5); LYMPHOCYTES % (AUTO) 2.1 %; MEAN CORPUSCULAR HEMOGLOBIN 30.4 pg (27.0-31.0); MEAN CORPUSCULAR HGB CONC 32.9 g/dL (32.0-36.0); MEAN CORPUSCULAR VOLUME 92.5 fL (81.0-99.0); MEAN PLATELET VOLUME 11.1 fL (7.9-10.8); MONOCYTES # (AUTO) 1.1 10^3/uL (0.0-1.0); MONOCYTES % (AUTO) 6.1 %; NEUTROPHILS # (AUTO) 16.3 10^3/uL (1.5-6.6); NEUTROPHILS % (AUTO) 90.6 %; PLT - PLATELET COUNT 138 10^3/uL (130-450); RED BLOOD COUNT 4.98 10^6/uL (4.20-5.40); RED CELL DISTRIBUTION WIDTH 13.6 % (12.0-15.0)
[2019-01-14 09:18] LABS: ALBUMIN 3.8 g/dL (3.2-5.5); ALBUMIN/GLOBULIN RATIO 1.5 (1.0-2.2); BILIRUBIN,TOTAL 0.8 mg/dL (0.2-1.0); CALCIUM 8.8 mg/dL (8.5-10.3); CREATININE 0.8 mg/dL (0.4-1.0); TOTAL PROTEIN 6.3 g/dL (6.7-8.2)
[2019-01-14] MEDS ORDERED: HYDROmorphone 1 MG/ML CARPUJECT IVP STA (11:56)
[2019-01-14 18:37] VITALS: BP 156/98
== END 2019-01-14 18:33 | disposition home or self-care (01) ==
LOC: EDUNIT# → EDBD → ED 06:53
DX: K52.9 Noninfective gastroenteritis and colitis, unspecified (principal); E86.0 Dehydration; G20 Parkinson's disease; G24.9 Dystonia, unspecified
CPT/HCPCS: 36415; 80053; 83605; 83690; 84484; 85025; 87040; 87045; 87046; 87493; 96361; 96374; 96375; 99283; 99284; A9270; J1170

== ENCOUNTER 2019-08-30 18:06 | Outpatient (CLI) | payer MEDICARE, MEDICAID | END 2019-08-30 18:07 | disposition critical access hospital (66) | LOC: EMS 18:06 | PROVIDERS: ATTEND Surgery | DX: M79.632 Pain in left forearm (principal); V00.811A Fall from moving wheelchair (powered), initial encounter; Y92.007 Garden or yard of unspecified non-institutional (private) residence as the place of occurrence of the external cause; Z99.3 Dependence on wheelchair | CPT/HCPCS: A0425; A0429 ==

== ENCOUNTER 2019-08-30 18:12 | Emergency (ER) | payer MEDICARE, MEDICAID ==
--- NOTE | 2019-08-30 18:38 | ED Physician Documentation ---
PD HPI UPPER EXT INJURY - Stated complaint Stated Complaint: LEFT ARM PAIN SP POWERCHAIR INTO DITCH - Chief complaint Chief Complaint: Trauma Ext - History obtained from History obtained from: Patient, EMS - History of Present Illness Location: Left (64-year-old woman with history of spasticity who is wheelchair- bound was on her way into her assisted living place and her wheelchair went into the ditch and she came down on her left side injuring her left arm, and isolated injury. She did not hit her neck or hurt her head. Pain is moderate but she declines pain medications.) Review of Systems Constitutional: denies: Fever, Chills Throat: reports: Reviewed and negative Cardiac: reports: Reviewed and negative Respiratory: reports: Reviewed and negative PD PAST MEDICAL HISTORY - Past Medical History Neuro: Parkinson's - Past Surgical History Past Surgical History: No - Present Medications Home Medications: Ambulatory Orders Medication Instructions Recorded Confirmed Gabapentin 2 cap PO BID 04/05/18 12/12/18 Carbidopa/Levodopa [Carbidopa-Levo 2 tab ORAL DAILY 12/12/18 12/12/18 ER 50-200 Tab] Carbidopa/Levodopa 3 tab ORAL QID 12/12/18 12/12/18 [Carbidopa-Levodopa 10-100 Tab] Levocetirizine Dihydrochloride 1 tab ORAL QPM 12/12/18 12/12/18 Montelukast Sodium 1 tab ORAL QPM 12/12/18 12/12/18 Venlafaxine ER [Effexor ER] 225 mg ORAL DAILY 12/12/18 12/12/18 Acetaminophen/Cod 300/30 [Tylenol 1 each PO BID 01/14/19 01/14/19 #3] Diphenoxylate/Atropine [Lomotil] 1 each PO QID PRN #20 tablet 01/14/19 Ondansetron Odt [Zofran] 4 mg TL Q6H PRN #10 tablet 01/14/19 Oxybutynin [Ditropan] 5 mg PO 01/14/19 - Allergies Allergies/Adverse Reactions: Allergies Allergy/AdvReac Type Severity Reaction Status Date / Time erythromycin base Allergy Unknown Verified 08/30/19 18:19 fluticasone [From Flonase] Allergy Unknown Verified 08/30/19 18:19 morphine Allergy Unknown Verified 08/30/19 18:19 Penicillins Allergy Unknown Verified 08/30/19 18:19 Sulfa (Sulfonamide Allergy Unknown Verified 08/30/19 18:19 Antibiotics) - Social History Does the pt smoke?: No Smoking Status: Never smoker Does the pt drink ETOH?: No Does the pt have substance abuse?: No - Immunizations Immunizations are current?: Yes - POLST Patient has POLST: No PD ED PE NORMAL - Vitals Vital signs reviewed: Yes - General General: Alert and oriented X 3, No acute distress - Neck Neck: Supple, no meningeal sign, No bony TTP - Extremities Extremities: No deformity (But mild tenderness to the first Metatarsal on the right as well.), Other (Mild tenderness of the upper humerus just below the shoulder joint in the mid humerus but excellent range of motion) - Neuro Neuro: Alert and oriented X 3, Normal speech Results - Vitals Vitals: Vital Signs - 24 hr 08/30/19 18:19 Temperature 37.2 C Heart Rate 90 Respiratory 14 Rate Blood Pressure 111/90 H O2 Saturation 96 Oxygen O2 Source Room air - Rads (name of study) X-rays of the left humerus, left shoulder, right foot Radiology: EMP read contemporaneously (No fractures) Departure - Departure Disposition: Home, Self Care Clinical Impression: Sprain of left shoulder Qualifiers: Encounter type: initial encounter Shoulder sprain type: unspecified sprain Qualified Code(s): S43.402A - Unspecified sprain of left shoulder joint, initial encounter Contusion of left arm Qualifiers: Encounter type: initial encounter Qualified Code(s): S40.022A - Contusion of left upper arm, initial encounter Contusion of right foot Qualifiers: Encounter type: initial encounter Qualified Code(s): S90.31XA - Contusion of right foot, initial encounter Condition: Good Record reviewed to determine appropriate education?: Yes Instructions: ED Contusion Upper Ext Comments: Call your doctor to arrange a follow-up appointment, make the next available appointment. In the interim, return anytime if worse or if new symptoms develop.
--- NOTE | 2019-08-30 19:49 | XRAY Report ---
Reason: arm injury Procedure Date: 08/30/2019 Accession Number: [id number] / [id number] Procedure: XR - Shoulder 3 View LT CPT Code: Final Report FULL RESULT: EXAM: LEFT SHOULDER RADIOGRAPHY EXAM DATE: 08/30/2019 07:25 PM. CLINICAL HISTORY: Arm injury. Shoulder pain. COMPARISON: None. TECHNIQUE: 3 views. FINDINGS: Bones: Normal. No fracture or bone lesion. Joints: The glenohumeral and acromioclavicular joints are normal. Soft tissues: The visualized hemithorax is unremarkable. No soft tissue swelling. IMPRESSION: Normal shoulder radiography. [facility]
--- NOTE | 2019-08-30 19:50 | XRAY Report ---
Reason: arm injury Procedure Date: 08/30/2019 Accession Number: [id number] / [id number] Procedure: XR - Humerus LT CPT Code: Final Report FULL RESULT: EXAM: LEFT HUMERUS RADIOGRAPHY EXAM DATE: 08/30/2019 07:25 PM. CLINICAL HISTORY: Arm injury. Shoulder pain. COMPARISON: SHOULDER 3 VIEW LT 08/30/2019 6:56 PM. TECHNIQUE: 2 views. FINDINGS: Bones: Normal. No fractures or bone lesions. Joints: Normal. No effusions or subluxations in the visualized shoulder or elbow joints. Soft Tissues: Normal. No soft tissue swelling. IMPRESSION: Normal humerus radiography. [facility]
--- NOTE | 2019-08-30 20:53 | XRAY Report ---
Reason: foot pain Procedure Date: 08/30/2019 Accession Number: [id number] / [id number] Procedure: XR - Foot 3 View RT CPT Code: Final Report FULL RESULT: EXAM: RIGHT FOOT RADIOGRAPHY EXAM DATE: 08/30/2019 08:15 PM. CLINICAL HISTORY: Foot pain. COMPARISON: FOOT 3 VIEW RT 04/06/2018 1:56 AM. TECHNIQUE: 3 views. FINDINGS: Bones: Osteopenia. No acute displaced fractures.. Joints: No subluxations. Soft Tissues: Unremarkable. IMPRESSION: No acute fracture. [facility]
[2019-08-30 21:07] VITALS: BP 86/71
== END 2019-08-30 21:50 | disposition home or self-care (01) ==
LOC: EDUNIT# → ED 18:12
DX: S43.402A Unspecified sprain of left shoulder joint, initial encounter (principal); S40.022A Contusion of left upper arm, initial encounter; S90.31XA Contusion of right foot, initial encounter; V00.811A Fall from moving wheelchair (powered), initial encounter; Y93.89 Activity, other specified; Y92.099 Unspecified place in other non-institutional residence as the place of occurrence of the external cause; G20 Parkinson's disease
CPT/HCPCS: 99283; 99284

== ENCOUNTER 2019-09-18 15:52 | Outpatient (CLI) | payer MEDICARE, MEDICAID | END 2019-09-18 15:53 | disposition critical access hospital (66) | LOC: EMS 15:52 | PROVIDERS: ATTEND Surgery | DX: M54.5 Low back pain (principal); M25.551 Pain in right hip; R25.2 Cramp and spasm | CPT/HCPCS: A0425; A0428; A0429 ==

== ENCOUNTER 2019-09-18 15:56 | Emergency (ER) | payer MEDICARE, MEDICAID ==
[2019-09-18] MEDS ORDERED: CYCLOBENZAPRINE 10 MG TABLET PO STA (16:52)
--- NOTE | 2019-09-18 16:53 | ED Physician Documentation ---
PD HPI BACK INJURY - Stated complaint Stated Complaint: LOWER BACK PX - History obtained from History obtained from: Patient (64-year-old woman with history of spasticity, because of that she is mostly in a wheelchair. About 4 days ago her wheelchair went into gravel and she had to push it out. The next day she developed back pain and then subsequently developed right flank pain which is worse with motion. No urinary complaints. No fevers or shortness of breath or cough.) Review of Systems Constitutional: denies: Fever, Chills GI: denies: Abdominal Pain, Nausea, Vomiting : denies: Dysuria, Frequency, Hesitancy, Unable to Void PD PAST MEDICAL HISTORY - Past Medical History Neuro: Parkinson's - Past Surgical History Past Surgical History: No - Present Medications Home Medications: Ambulatory Orders Medication Instructions Recorded Confirmed Gabapentin 2 cap PO BID 04/05/18 12/12/18 Carbidopa/Levodopa [Carbidopa-Levo 2 tab ORAL DAILY 12/12/18 12/12/18 ER 50-200 Tab] Carbidopa/Levodopa 3 tab ORAL QID 12/12/18 12/12/18 [Carbidopa-Levodopa 10-100 Tab] Levocetirizine Dihydrochloride 1 tab ORAL QPM 12/12/18 12/12/18 Montelukast Sodium 1 tab ORAL QPM 12/12/18 12/12/18 Venlafaxine ER [Effexor ER] 225 mg ORAL DAILY 12/12/18 12/12/18 Acetaminophen/Cod 300/30 [Tylenol 1 each PO BID 01/14/19 01/14/19 #3] Diphenoxylate/Atropine [Lomotil] 1 each PO QID PRN #20 tablet 01/14/19 Ondansetron Odt [Zofran] 4 mg TL Q6H PRN #10 tablet 01/14/19 Oxybutynin [Ditropan] 5 mg PO 01/14/19 Hydrocodone/Acetaminophen 1 - 2 each PO Q6H PRN #14 tablet 09/18/19 [Hydrocodon-Acetaminophen 5-325] levoFLOXacin [Levaquin] 250 mg PO DAILY #7 tablet 09/18/19 - Allergies Allergies/Adverse Reactions: Allergies Allergy/AdvReac Type Severity Reaction Status Date / Time erythromycin base Allergy Unknown Verified 08/30/19 18:19 fluticasone [From Flonase] Allergy Unknown Verified 08/30/19 18:19 morphine Allergy Unknown Verified 08/30/19 18:19 Penicillins Allergy Unknown Verified 08/30/19 18:19 Sulfa (Sulfonamide Allergy Unknown Verified 08/30/19 18:19 Antibiotics) - Social History Does the pt smoke?: No Smoking Status: Never smoker Does the pt drink ETOH?: No Does the pt have substance abuse?: No - Immunizations Immunizations are current?: Yes - POLST Patient has POLST: No PD ED PE NORMAL - Vitals Vital signs reviewed: Yes - General General: Alert and oriented X 3, No acute distress - Cardiac Cardiac: RRR, No murmur - Respiratory Respiratory: No respiratory distress, Clear bilaterally - Abdomen Abdomen: Non tender - Back Back: No spinal TTP, Other (She is tender over the right flank and right paralumbar musculature on the right. It hurts to move. Minimal pain at rest.) - Extremities Extremities: No edema, No calf tenderness / cord - Neuro Neuro: Alert and oriented X 3, Normal speech Results - Vitals Vitals: Vital Signs - 24 hr 09/18/19 16:11 Temperature 37 C Heart Rate 101 H Respiratory 18 Rate Blood Pressure 133/90 H O2 Saturation 98 Oxygen O2 Source Room air - Labs Labs: Laboratory Tests 09/18/19 17:10 Urine Color YELLOW Urine Clarity CLOUDY Urine pH 6.0 Ur Specific [place] >=1.030 H Urine Protein NEGATIVE Urine Glucose (UA) NEGATIVE Urine Ketones 15 H Urine Occult Blood NEGATIVE Urine Nitrite POSITIVE H Urine Bilirubin NEGATIVE Urine Urobilinogen 0.2 (NORMAL) Ur Leukocyte Esterase TRACE H Urine RBC 0-5 Urine WBC 11-25 H Ur Squamous Epith Cells MANY Squamous H Urine Crystals 3-5 Calcium Oxalate Urine Bacteria Moderate H Urine Mucus Moderate Strands Ur Microscopic Review INDICATED Urine Culture Comments NOT INDICATED - Rads (name of study) CT KUB Radiology: EMP read contemporaneously (No obstruction, nonobstructing 4 mm stone in the left kidney) PD MEDICAL DECISION MAKING - ED course ED course: 64-year-old woman presents with right flank pain, might be muscular based on the history and physical, but high suspicion for pyelonephritis as well and this seemed most likely after the work-up. Departure - Departure Disposition: 01 Home, Self Care Clinical Impression: Pyelonephritis Back pain Qualifiers: Back pain location: low back pain Chronicity: acute Back pain laterality: right Sciatica presence: without sciatica Qualified Code(s): M54.5 - Low back pain Condition: Good Record reviewed to determine appropriate education?: Yes Instructions: Pyelonephritis Dc Prescriptions: Hydrocodone/Acetaminophen [Hydrocodon-Acetaminophen 5-325] 1 - 2 each PO Q6H PRN #14 tablet PRN Reason: pain levoFLOXacin [Levaquin] 250 mg PO DAILY #7 tablet Comments: We will culture your urine, the results should be done in 48-72 hours. If an antibiotic change is necessary we will call you. Return if worse in the meantime, especially if you develop increasing flank pain, fevers, or cannot keep down the medication. Your blood pressure was elevated today on check into the emergency department. This does not mean that you have hypertension, it is a common phenomenon to come to the emergency department and have elevated blood pressure. I recommend that you see your primary care physician within the week to have it rechecked when you are feeling better.
[2019-09-18 17:15] LABS: GLUCOSE, URINE (UA) NEGATIVE (NEGATIVE); KETONES,URINE (UA) 15 mg/dL (NEGATIVE); LEUKOCYTE ESTERASE, URINE TRACE (NEGATIVE); NITRITE,URINE POSITIVE (NEGATIVE); OCCULT BLOOD,URINE NEGATIVE (NEGATIVE); PROTEIN,URINE NEGATIVE (NEGATIVE); UROBILINOGEN,URINE 0.2 (NORMAL) E.U./dL (NORMAL)
[2019-09-18 17:19] LABS: BILIRUBIN,URINE NEGATIVE (NEGATIVE); CLARITY,URINE CLOUDY (CLEAR); ICTOTEST,URINE NEGATIVE
[2019-09-18 17:39] LABS: BACTERIA,URINE Moderate /HPF (None Seen); MUCUS,URINE Moderate Strands; RBC,URINE 0-5 /HPF (0-5); SQUAMOUS EPITHELIAL CELL,UR MANY Squamous (<= Few)
[2019-09-18 17:40] LABS: CRYSTALS,URINE 3-5 Calcium Oxalate /LPF
--- NOTE | 2019-09-18 17:59 | CT Report ---
Reason: flank pain Procedure Date: 09/18/2019 Accession Number: [id number] / [id number] Procedure: CT - Abdomen/Pelvis WO CPT Code: Final Report FULL RESULT: EXAM: CT ABDOMEN AND PELVIS (CT KUB) EXAM DATE: 09/18/2019 05:26 PM. CLINICAL HISTORY: Flank pain. COMPARISONS: None. TECHNIQUE: Routine axial helical CT imaging was performed through the abdomen and pelvis without IV contrast. Reconstructions: Coronal and sagittal. In accordance with CT protocol optimization, one or more of the following dose reduction techniques were utilized for this exam: automated exposure control, adjustment of mA and/or KV based on patient size, or use of iterative reconstructive technique. FINDINGS: Lung Bases: Mild atelectasis and scarring in lingula and both lung bases. Right Kidney/Ureter: A 1 cm simple cyst in midpolar region of right kidney. No stones, hydronephrosis, or hydroureter. No perinephric fat stranding. Left Kidney/Ureter: Left sided extra renal pelvis noted. A 1.5 cm simple cyst in superior pole of left kidney. A 4 mm nonobstructive calculus in lower pole of left kidney (image 61 on series 3). No obstructive calculus, hydronephrosis, or hydroureter. No perinephric fat stranding. Other Solid Organs: Noncontrast images of the solid organs are grossly unremarkable. Gallbladder/Bile Ducts: Post cholecystectomy. Peritoneal Cavity: No free fluid, free air or frandy adenopathy. Bowel is grossly unremarkable. Normal appendix in right lower quadrant. Pelvic Organs: No bladder stones or wall thickening. Noncontrast images of the visualized pelvic organs are unremarkable. Vasculature: Unremarkable. Other: Status post posterior fusion at L4-S1 level with well-positioned hardware. IMPRESSION: No obstructive urinary tract stones or hydronephrosis. A 4 mm nonobstructive calculus in left kidney. Normal appendix. No other significant abnormality. [facility]
[2019-09-18] MEDS ORDERED: HYDROcod/ACET 5/325 Prepack 4 PO STA (18:17)
[2019-09-18] MEDS ORDERED: levoFLOXacin 250 MG TABLET PO STA (18:17)
[2019-09-18 20:01] VITALS: BP 131/72
== END 2019-09-18 20:03 | disposition home or self-care (01) ==
LOC: EDUNIT# → ED 15:56
DX: N12 Tubulo-interstitial nephritis, not specified as acute or chronic (principal); M54.5 Low back pain; R03.0 Elevated blood-pressure reading, without diagnosis of hypertension; G20 Parkinson's disease
CPT/HCPCS: 74176; 81001; 87086; 87181; 99284; A9270; 81003

== ENCOUNTER 2019-09-18 20:12 | Outpatient (CLI) | payer MEDICARE, MEDICAID | END 2019-09-18 20:13 | disposition home or self-care (01) | LOC: EMS 20:12 | PROVIDERS: ATTEND Surgery | DX: M25.551 Pain in right hip (principal); M54.9 Dorsalgia, unspecified; R25.2 Cramp and spasm ==